=== PATIENT | male | born 1995 | race American Indian/Alaskan Native ===

== ENCOUNTER 2017-01-10 17:26 | Emergency (ER) | payer BC, OTHER ==
--- NOTE | 2017-01-10 17:29 | EDM.PDOC ---
<G[place]agoza - Last Filed: 01/10/17 18:42> ED HISTORY OF PRESENT ILLNESS - General Chief Complaint: Cardiovascular Problem Stated Complaint: IRREGULAR HEARTBEAT Time Seen by Provider: 01/10/17 17:28 Source of Information: Reports: Patient, RN, RN notes reviewed History Limitations: Reports: No limitations - History of Present Illness INITIAL COMMENTS - FREE TEXT/NARRATIVE: Complains of rapid and irregular heart rate onset approximately noon today. Symptoms have been intermittent. Patient feels anxious. Patient just completed a non-stop drive from [place] to [place]. Patient believes that he drank to much caffeine. He had multiple energy drinks and coffee. Denies chest pain. 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 [No Known Home Meds] 01/10/17 [History] Past Medical History - Past Health History Medical/Surgical History: Denies Medical/Surgical History Social & Family History - Family History Family Medical History: Noncontributory - Tobacco Use Tobacco Use Within Last Twelve Months: Smokeless Tobacco - Caffeine Use Caffeine Use: Reports: Coffee, Energy drinks, Soda - Alcohol Use Alcohol Use History: Yes Alcohol Use Frequency: Rarely - Recreational Drug Use Recreational Drug Use: No - Living Situation & Occupation Living situation: Reports: with family ED ROS GENERAL - Review of Systems Review Of Systems: ROS reveals no pertinent complaints other than HPI. ED EXAM, GENERAL - Physical Exam Exam: See Below Exam Limited By: No limitations General Appearance: alert, WD/WN, no apparent distress, anxious Eye Exam: bilateral eye: normal inspection Ears: normal external exam, normal canal, hearing grossly normal, normal TMs Nose: normal inspection, normal mucosa, no blood Throat/Mouth: Normal inspection, Normal lips, Normal teeth, Normal gums, Normal oropharynx, Normal voice, No airway compromise Head: atraumatic, normocephalic Neck: normal inspection, supple, non-tender, full range of motion Respiratory/Chest: no respiratory distress, lungs clear, normal breath sounds, no accessory muscle use, chest non-tender Cardiovascular: normal peripheral pulses, regular rate, rhythm, no edema, no gallop, no JVD, no murmur, no rub, tachycardia GI/Abdominal: normal bowel sounds, soft, non tender, no organomegaly, no distention, no abnormal bruit, no mass Back Exam: normal inspection, full range of motion, NT Extremities: normal inspection, normal range of motion, non-tender, normal capillary refill, no pedal edema Neurological: alert, oriented, CN II-XII intact, normal cognition, normal gait, no motor/sensory deficits Psychiatric: anxious Skin Exam: Warm, Dry, Intact, Normal color, No rash EKG INTERPRETATION EKG Date: 01/10/17 Time: 17:56 Rhythm: other (sinus rhythm) Rate (beats/min): 81 [place]: normal P-wave: present QRS: normal ST-T: normal QT: normal Comparison: NA - no prior EKG Course - Vital Signs Last Recorded V/S: Last Vital Signs Temp 36.9 C 01/10/17 17:39 Pulse 95 01/10/17 17:39 Resp 18 01/10/17 17:39 BP 155/67 H 01/10/17 17:39 Pulse Ox 99 01/10/17 17:39 - Orders/Labs/Meds Orders: Active Orders 24 hr Category Date Time Status EKG 12 Lead [EKG Documentation Completion] [RC] STAT Care 01/10/17 17:30 Active Peripheral IV Care [RC] . DIRECTED Care 01/10/17 18:17 Active DRUG SCREEN URINE BIORAD [URCHEM] Stat Lab 01/10/17 18:16 Uncollected UA W/MICROSCOPIC [URIN] Stat Lab 01/10/17 18:16 Uncollected Sodium Chloride 0.9% [Saline Flush] Med 01/10/17 18:16 Active 10 ml FLUSH ASDIRECTED PRN Peripheral IV Insertion Adult [OM.PC] Stat Oth 01/10/17 18:16 Ordered Medication Orders Sodium Chloride (Saline Flush) 10 ml FLUSH ASDIRECTED PRN PRN Reason: Keep Vein Open Last Admin: 01/10/17 18:44 Dose: 10 ml Labs: Laboratory Tests 01/10/17 01/10/1701/10/17 Range/Units 18:25 18:25 18:25 WBC 10.0 (5.0-10.0) 10^3/uL RBC 5.54 (4.6-6.2) 10^6/uL Hgb 16.1 (14.0-18.0) g/dL Hct 46.7 (40.0-54.0) % MCV 84.3 (80-100) fL MCH 29.1 (27.0-34.0) pg MCHC 34.5 (33.0-35.0) g/dL Plt Count 253 (150-450) 10^3/uL Neut % (Auto) 68.8 (42.2-75.2) % Lymph % (Auto) 19.9 L (20.5-50.1) % [place] % (Auto) 10.0 H (2-8) % Eos % (Auto) 1.1 (1.0-3.0) % Baso % (Auto) 0.2 (0.0-1.0) % D-Dimer, Quantitative < 100 (0-400) ng/mL Sodium 138 (135-145) mmol/L Potassium 4.6 (3.6-5.0) mmol/L Chloride 105 (101-111) mmol/L Carbon Dioxide 26.0 (21.0-31.0) mmol/L Anion Gap 11.6 BUN 14 (7-18) mg/dL Creatinine 1.0 (0.6-1.3) mg/dL Est Cr Clr Drug Dosing 121.67 mL/min Estimated GFR (MDRD) > 60 BUN/Creatinine Ratio 14.00 Glucose 94 (74-105) mg/dL Calcium 9.3 (8.4-10.2) mg/dl Total Bilirubin 0.5 (0.2-1.0) mg/dL AST 20 (10-42) IU/L ALT 22 (10-60) IU/L Alkaline Phosphatase 78 (42-121) IU/L Troponin I < 0.02 (0.00-0.02) ng/ml Total Protein 8.3 H (6.7-8.2) g/dl Albumin 4.8 (3.2-5.5) g/dl Globulin 3.5 Albumin/Globulin Ratio 1.37 Meds: Medications Generic Name Dose Route Start Last Admin Trade Name Freq PRN Reason Stop Dose Admin Sodium Chloride 10 ml 01/10/17 18:16 01/10/17 18:44 Saline Flush FLUSH 10 ml ASDIRECTED PRN Administration Keep Vein Open Discontinued Medications Generic Name Dose Route Start Last Admin Trade Name Liz PRN Reason Stop Dose Admin Sodium Chloride 1,000 mls @ 999 mls/hr 01/10/17 18:17 01/10/17 18:44 Normal Saline IV 01/10/17 19:17 999 mls/hr .BOLUS ONE Administration - Re-Assessments/Exams Free Text/Narrative Re-Assessment/Exam: 01/10/17 18:47 Care of patient transferred to Dr. Leary at 1900 hours, shift change with lab results pending. 01/10/17 18:47 I explained the exam findings, results of all diagnostic tests, working diagnosis, and any potential or additionally considered diagnoses, treatment/ disposition plan, self/home care instructions, rational for the diagnosis/ treatment plan/disposition plan, anticipated course of illness, and follow up instructions to the pt and/or pts family or guardian. The pt and/or pts family or guardian acknowledges understanding of the above explanation(s), and of the signs and symptoms which should prompt the return of the pt to the ER should those or any other concerning symptoms develop. Departure - Departure Disposition: Home, Self-Care 01 Clinical Impression: Adverse reaction to caffeine Qualifiers: Encounter type: initial encounter Qualified Code(s): T43.615A - Adverse effect of caffeine, initial encounter Instructions: Palpitations, [id number] Forms: ED Department Discharge Additional Instructions: 1) avoid too much caffeine 2) follow up at clinic or recheck if there is any change or concerns rx togo: ativan 0.5mg prn x 1 <Pravin Leary - Last Filed: 01/10/17 19:34> Course - Re-Assessments/Exams Free Text/Narrative Re-Assessment/Exam: 01/10/17 19:31 re-exam: no c/o feels much better. wants to go home to sleep. Departure - Departure Time of Disposition: 19:32 Condition: good
[2017-01-10] MEDS ORDERED: Sodium Chloride 0.9% 10 ML Syringe FLUSH PRN (18:16)
[2017-01-10] MEDS ORDERED: Sodium Chloride 0.9% 1,000 ML IV ONE (18:17)
[2017-01-10 18:52] LABS: CHLORIDE,CL 105 mmol/L (101-111); SODIUM,NA 138 mmol/L (135-145)
[2017-01-10] MEDS ORDERED: LORazepam 0.5 MG Tab PO ONE (19:32)
[2017-01-10] MEDS ORDERED: LORazepam 0.5 MG Tab ONE (19:32)
[2017-01-10 19:37] VITALS: BP 117/60
--- NOTE | 2017-01-14 13:19 | EKG ---
01/10/2017 - MIGUEL GATES - TIME: 5:56 p.m. EKG shows sinus rhythm with no acute ST changes. [facility] /[id number]
== END 2017-01-10 19:43 | disposition home or self-care (01) ==
LOC: DL.ED 17:26
DX: F41.9 Anxiety disorder, unspecified (principal); T43.615A Adverse effect of caffeine, initial encounter
CPT/HCPCS: 36415; 80053; 84484; 85025; 85379; 93005; 99285; J7030; J7050; A9270-GY

== ENCOUNTER 2018-03-21 03:45 | Emergency (ER) | payer OTHER, BC ==
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
[2018-03-21] MEDS ORDERED: Iopamidol 612 MG/ML 100 ML Bottle IVPUSH ONE (04:27)
[2018-03-21 04:40] LABS: CHLORIDE,CL 110 mmol/L (98-109); SODIUM,NA 143 mmol/L (138-146)
== END 2018-03-21 05:55 | disposition home or self-care (01) ==
LOC: DL.ED 03:45
DX: S40.012A Contusion of left shoulder, initial encounter (principal); V89.2XXA Person injured in unspecified motor-vehicle accident, traffic, initial encounter
CPT/HCPCS: 36415; 70450; 71260; 72125; 73030-LT; 74177; 80048; 80305; 81001; 85025; 99285; Q9967